=== PATIENT | female | born 1930 | race Caucasian/White ===

== ENCOUNTER 2017-02-03 13:00 | Outpatient (CLI) | payer MEDICARE, OTHER ==
--- NOTE | 2017-02-03 16:41 | XRAY Report ---
TWO VIEW CHEST: 02/03/2017 CLINICAL INDICATION: Cough, fatigue. FINDINGS: Frontal and lateral views of the chest are compared to previous films of 02/29/2012. The cardiac silhouette is within normal limits. 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 No new consolidation, effusion, or pneumothorax is present. IMPRESSION: NO EVIDENCE OF ACUTE CARDIOPULMONARY DISEASE. NO SIGNIFICANT INTERVAL CHANGE. JOB #: [id number] EXT JOB #:[id number]
== END 2017-02-03 13:01 | disposition home or self-care (01) ==
LOC: DI 13:00
PROVIDERS: ATTEND Physician Assistant
DX: R05 Cough (principal)
CPT/HCPCS: 71020

== ENCOUNTER 2017-07-22 20:46 | Outpatient (CLI) | payer MEDICARE, OTHER ==
--- NOTE | 2017-07-23 11:13 | Ultrasound Report ---
COMPLETE ABDOMINAL ULTRASOUND: 07/22/2017 CLINICAL INDICATION: Right lower quadrant pain, unspecified abdominal pain. TECHNIQUE: Real-time scanning was performed with printing sales representative static images obtained. FINDINGS: The liver measures 13.5 cm. Hepatic echogenicity is unremarkable. No focal parenchymal lesion or intrahepatic biliary dilatation is present. The common bile duct measures 5 mm. The gallbladder is normal, as is the pancreas. The kidneys are normal, with the right measuring 9.1 cm and the left measuring 9.4 cm. The spleen measures 8.2 cm, and demonstrates normal echotexture. The abdominal aorta is normal in caliber. The inferior vena cava is unremarkable. No free fluid is present. IMPRESSION: NORMAL ABDOMINAL ULTRASOUND. TD: 07/23/2017 11:12
--- NOTE | 2017-07-23 11:15 | Ultrasound Report ---
PELVIC ULTRASOUND: 07/22/2017 CLINICAL INDICATION: Right lower quadrant pain, possible mass on physical exam. TECHNIQUE: Transabdominal pelvic ultrasound performed for global evaluation. Transvaginal pelvic ultrasound performed for detailed evaluation. Real-time scanning performed and static images obtained. TECHNIQUE: The uterus is surgically absent. The right ovary is suboptimally visualized, but appears to measure 2.2 x 1.1 x 1.0 cm when visualized. Multiple peristalsing bowel loops are present in the pelvis. The left ovary was not confidently identified on transabdominal or transvaginal imaging. No free fluid is present. Scanning of the region of maximal tenderness identified by the patient in the right lower quadrant demonstrates no discrete abnormality. IMPRESSION: POSTOPERATIVE CHANGES OF HYSTERECTOMY. NO DEFINITE ADNEXAL MASS. NO EVIDENT SONOGRAPHIC ABNORMALITY AT THE PATIENT'S SITE OF MAXIMAL TENDERNESS. TD: 07/23/2017 11:14
== END 2017-07-22 20:47 | disposition home or self-care (01) ==
LOC: DI 20:46
PROVIDERS: ATTEND Family Medicine
DX: R10.31 Right lower quadrant pain (principal); Z90.710 Acquired absence of both cervix and uterus
CPT/HCPCS: 76700; 76830; 76856

== ENCOUNTER 2017-08-17 11:18 | Outpatient (CLI) | payer MEDICARE, OTHER ==
[2017-08-17] MEDS ORDERED: IOPAMIDOL-300 100 ML VIAL ONE (11:39)
[2017-08-17] MEDS ORDERED: IOPAMIDOL-300 50 ML VIAL ONE (11:39)
[2017-08-17] MEDS ORDERED: IOPAMIDOL-300 50 ML VIAL PO ONE (13:37)
[2017-08-17] MEDS ORDERED: IOPAMIDOL-300 100 ML VIAL IVP ONE (13:37)
--- NOTE | 2017-08-17 15:03 | CT Report ---
CT ABDOMEN AND PELVIS WITH CONTRAST: 08/17/2017 CLINICAL INDICATION: Pain, constipation. COMPARISON: 10/08/2010. TECHNIQUE: Axial CT images of the abdomen and pelvis were obtained with 100 mL Isovue 300 intravenously as well as oral contrast. FINDINGS: Limited evaluation of the lung bases demonstrates atelectasis. ABDOMEN: The liver, spleen, pancreas and adrenal glands appear unremarkable. The gallbladder is not dilated. The kidneys demonstrate cortical cysts. No bowel dilatation, free gas, or free fluid is present. No abdominal adenopathy is seen. PELVIS: The pelvic organs appear unremarkable. No pelvic adenopathy or free fluid is present. The patient is status post hysterectomy. Osseous structures demonstrate degenerative changes. IMPRESSION: NO EVIDENT ETIOLOGY FOR PATIENT'S PAIN AND CONSTIPATION. CT DOSE REDUCTION STATEMENT In accordance with CT protocol optimization, one or more of the following dose reduction techniques were utilized for this exam: automated exposure control, adjustment of mA and/or KV based on patient size, or use of iterative reconstructive technique. TD: 08/17/2017 15:02
== END 2017-08-17 11:19 | disposition home or self-care (01) ==
LOC: DI 11:18
PROVIDERS: ATTEND Physician Assistant
DX: R10.9 Unspecified abdominal pain (principal); K59.00 Constipation, unspecified
CPT/HCPCS: 74177; Q9967

== ENCOUNTER 2017-09-07 19:09 | Emergency (ER) | payer MEDICARE, OTHER ==
--- NOTE | 2017-09-07 21:11 | ED Physician Documentation ---
PD HPI HEADACHE - Stated complaint Stated Complaint: THOMPSON - Chief complaint Chief Complaint: Neuro - History obtained from History obtained from: Patient - History of Present Illness Timing - onset: How many days ago (2 days of intermittent headache left side, feeling ear pain and has feeling of "air" in head. Worse when lying down at night. No history of migraines. No head injury. H as not felt sick per se.) Timing - onset during: Rest Timing - duration: Hours Timing - details: Now resolved, Intermittant Worst headache ever?: Worst headache ever? Location: Front, Left Quality: Throbbing, Aching. No: Thunderclap Associated symptoms: No: Fever, Stiff neck, Nausea, Vomiting, Weakness, Numbness , Syncope, Eye pain Worsened by: No: Light, Noise Contributing factors: No: Anticoagulated, Hypertension, Recent illness, Trauma Similar symptoms before: Has not had sx before Recently seen: Not recently seen Review of Systems Constitutional: denies: Fever, Chills Eyes: denies: Loss of vision, Decreased vision, Photophobia Ears: reports: Loss of hearing (left side seems diminished), Ear pain. 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 HEENT: Cataracts, Tonsil/Adenoidectomy - Present Medications Home Medications: Ambulatory Orders Medication Instructions Recorded Confirmed Levothyroxine [Synthroid] 75 mcg PO QDAC 10/25/12 09/07/17 Lovastatin 40 mg PO DAILY 10/25/12 09/07/17 Metoprolol Succinate 25 mg PO BID 10/25/12 09/07/17 Cetirizine [ZyrTEC] 10 mg PO DAILY #20 tablet 09/07/17 Dexamethasone [Decadron] 4 mg PO DAILY #5 tablet 09/07/17 Lisinopril 5 mg PO DAILY 09/07/17 09/07/17 - Allergies Allergies/Adverse Reactions: Allergies Allergy/AdvReac Type Severity Reaction Status Date / Time sulfamethoxazole Allergy unknown Verified 09/07/17 19:22 [From ] trimethoprim [From ] Allergy unknown Verified 09/07/17 19:22 - Living Situation Living Situation: reports: Alone Living Arrangement: reports: At home - Social History Does the pt smoke?: No Smoking Status: Never smoker Does the pt drink ETOH?: Yes Does the pt have substance abuse?: No - Immunizations Immunizations are current?: Yes - POLST Patient has POLST: No PD ED PE NORMAL - Vitals Vital signs reviewed: Yes - General General: Alert and oriented X 3, No acute distress, Well developed/nourished - HEENT HEENT: PERRL, EOMI, Ears normal, Moist mucous membranes, Pharynx benign - Neck Neck: Supple, no meningeal sign, No adenopathy - Cardiac Cardiac: RRR, No murmur - Respiratory Respiratory: Clear bilaterally - Abdomen Abdomen: Soft, Non tender - Derm Derm: Normal color, Warm and dry - Extremities Extremities: No tenderness to palpate, Normal ROM s pain - Neuro Neuro: Alert and oriented X 3, medical apparatus model maker 2-12 intact, No motor deficit, No sensory deficit, Normal speech Eye Opening: Spontaneous Motor: Obeys Commands Verbal: Oriented GCS Score: 15 Results - Vitals Vitals: Vital Signs - 24 hr 09/07/17 23:24 Temperature 36.4 C L Heart Rate 65 Respiratory 17 Rate Blood Pressure 152/59 H O2 Saturation 99 Oxygen O2 Source Room air - Labs Labs: Laboratory Tests 09/07/17 09/07/17 09/07/17 22:37 22:37 22:37 WBC 6.5 RBC 4.39 Hgb 12.5 Hct 37.7 MCV 85.9 MCH 28.5 MCHC 33.2 RDW 14.2 Plt Count 187 MPV 8.0 Neut # 3.2 Lymph # 2.5 [place] # 0.6 Eos # 0.2 Baso # 0.0 Absolute Nucleated RBC 0.00 Nucleated RBC % 0.0 ESR 29 Sodium 136 Potassium 4.0 Chloride 100 L Carbon Dioxide 29 Anion Gap 7.0 BUN 21 H Creatinine 0.7 Estimated GFR (MDRD) 79 L Glucose 106 H Calcium 9.4 Total Bilirubin 0.4 AST 23 ALT 15 Alkaline Phosphatase 53 Total Protein 7.8 Albumin 4.3 Globulin 3.5 Albumin/Globulin Ratio 1.2 Lipase 44 - Rads (name of study) head CT Radiology: Prelim report reviewed (no acute process seen), EMP read contemporaneously PD MEDICAL DECISION MAKING - ED course Complexity details: reviewed results, considered differential (feeling of pressure and "air" in frontal area and left side of head/ear. Eardrum appears normal. No rash nor sores. ), d/w patient Departure - Departure Disposition: 01 Home, Self Care Clinical Impression: Sinus pressure Headache Qualifiers: Headache type: unspecified Headache chronicity pattern: acute headache Intractability: not intractable Qualified Code(s): R51 - Headache Condition: Stable Record reviewed to determine appropriate education?: Yes Instructions: ED Cephalgia Unspecified Follow-Up: Katia Murguia PA [Primary Care Provider] - Prescriptions: Cetirizine [ZyrTEC] 10 mg PO DAILY #20 tablet Dexamethasone [Decadron] 4 mg PO DAILY #5 tablet Comments: Your head CT and basic blood tests are normal here. The headache you had and the subsequent air and pressure feeling may have related to sinus or middle ear pressure. We can try some anti-inflammatory and antihistamine medications for sinus congestion and see how you feel. The morning and throat irritation and phlegm that you have had would relate to this as well. Use Tylenol or ibuprofen or Aleve if needed for pains. Follow-up with your primary care. Discharge Date/Time: 09/07/17 23:40
--- NOTE | 2017-09-07 22:26 | XRAY Preliminary Report ---
Exam: XR CHEST 2 VIEW X-RAY IMPRESSION: No acute findings are seen. See above. [facility] SITE ID: [id number]
--- NOTE | 2017-09-07 22:26 | XRAY Report ---
EXAM: CHEST RADIOGRAPHY EXAM DATE: 09/07/2017 10:18 PM. CLINICAL HISTORY: Cough and some dyspnea. COMPARISON: Chest 02/03/2017. TECHNIQUE: 2 views. FINDINGS: Lungs/Pleura: No consolidation, airspace disease, pleural effusion or pneumothorax. Tiny density righ t apex, could be a calcified pulmonary nodule measuring 4 mm, appears unchanged Mediastinum: Borderline cardiomegaly, unchanged. IMPRESSION: No acute findings are seen. See above. [facility] Referring Provider Line: [phone] SITE ID: [id number]
--- NOTE | 2017-09-07 22:29 | CT Preliminary Report ---
Exam: CT HEAD W/O IMPRESSION: Generalized age-related cortical atrophic changes without evidence of acute intracranial abnormality. [facility] SITE ID: [id number]
--- NOTE | 2017-09-07 22:33 | CT Report ---
EXAM: CT HEAD EXAM DATE: 09/07/2017 10:12 PM. CLINICAL HISTORY: Headache 2 days ago, feeling lightheaded still. COMPARISON: Brain CT from 10/25/2012 and brain MRI from 10/26/2012. TECHNIQUE: Multiaxial CT images were obtained from the foramen magnum to the vertex. Reformats: Coron al. IV contrast: None. In accordance with CT protocol optimization, one or more of the following dose reduction techniques w ere utilized for this exam: automated exposure control, adjustment of mA and/or KV based on patient s ize, or use of iterative reconstructive technique. FINDINGS: Parenchyma: No intraparenchymal hemorrhage. No evidence of mass, midline shift, or CT findings of acu te infarction. Dowd-white differentiation is distinct. Mild diffuse chronic microangiopathic white ma tter changes are evident. Extraaxial Spaces: Normal for age. No subdural or epidural collections identified. Ventricles: The ventricles and cortical sulci are mildly enlarged, consistent with age-related tissue loss. Sinuses and orbits: Postsurgical changes from cataract extractions are noted in the globes. The paran ivonne and mastoid sinuses are not opacified. Bones: No evidence of fracture or calvarial defect. Other: Mild intracranial atherosclerosis is noted. IMPRESSION: Generalized age-related cortical atrophic changes without evidence of acute intracranial abnormality. [facility] Referring Provider Line: [phone] SITE ID: [id number]
[2017-09-07 22:47] LABS: BASOPHILS % (AUTO) 0.6 %; EOSINOPHILS # (AUTO) 0.2 10^3/uL (0.0-0.7); EOSINOPHILS % (AUTO) 2.8 %; HGB - HEMOGLOBIN 12.5 g/dL (12.0-16.0); LYMPHOCYTES # (AUTO) 2.5 10^3/uL (1.5-3.5); LYMPHOCYTES % (AUTO) 38.2 %; MEAN CORPUSCULAR HEMOGLOBIN 28.5 pg (27.0-31.0); MEAN CORPUSCULAR HGB CONC 33.2 g/dL (32.0-36.0); MEAN CORPUSCULAR VOLUME 85.9 fL (81.0-99.0); MONOCYTES # (AUTO) 0.6 10^3/uL (0.0-1.0); MONOCYTES % (AUTO) 9.6 %; NEUTROPHILS # (AUTO) 3.2 10^3/uL (1.5-6.6); NEUTROPHILS % (AUTO) 48.8 %; PLT - PLATELET COUNT 187 10^3/uL (130-450); RED BLOOD COUNT 4.39 10^6/uL (4.20-5.40); RED CELL DISTRIBUTION WIDTH 14.2 % (12.0-15.0); WHITE BLOOD COUNT 6.5 x10^3/uL (4.8-10.8)
[2017-09-07 22:59] LABS: ALBUMIN 4.3 g/dL (3.2-5.5); ALBUMIN/GLOBULIN RATIO 1.2 (1.0-2.2); BILIRUBIN,TOTAL 0.4 mg/dL (0.2-1.0); CALCIUM 9.4 mg/dL (8.5-10.3); CREATININE 0.7 mg/dL (0.4-1.0); TOTAL PROTEIN 7.8 g/dL (6.7-8.2)
[2017-09-07] MEDS ORDERED: DEXAMETHASONE 10 MG/ML VIAL PO STA (23:18)
[2017-09-07] MEDS ORDERED: CETIRIZINE 10 MG TABLET PO STA (23:18)
[2017-09-07 23:25] VITALS: BP 152/59
== END 2017-09-07 23:40 | disposition home or self-care (01) ==
LOC: ED 19:09
DX: J34.89 Other specified disorders of nose and nasal sinuses (principal); R51 Headache; I10 Essential (primary) hypertension; E03.9 Hypothyroidism, unspecified; Z86.73 Personal history of transient ischemic attack (TIA), and cerebral infarction without residual deficits
CPT/HCPCS: 36415; 70450; 71046; 80053; 83690; 85025; 85651; 99283; A9270

== ENCOUNTER 2017-10-14 09:54 | Outpatient (CLI) | payer MEDICARE, OTHER | END 2017-10-14 09:55 | disposition home or self-care (01) | LOC: RT 09:54 | PROVIDERS: ATTEND Physician Assistant | DX: I10 Essential (primary) hypertension (principal); E78.5 Hyperlipidemia, unspecified; R06.02 Shortness of breath; R06.00 Dyspnea, unspecified | CPT/HCPCS: 93005; 93306 ==

== ENCOUNTER 2018-06-26 11:57 | Outpatient (CLI) | payer MEDICARE, OTHER ==
--- NOTE | 2018-06-26 14:43 | Ultrasound Report ---
Reason: LUMP L SIDE OF NECK Procedure Date: 06/26/2018 Accession Number: [id number] / [id number] Procedure: US - Head or Neck Soft Tissue CPT Code: FULL RESULT: EXAM: NECK ULTRASOUND EXAM DATE: 06/26/2018 12:30 PM. CLINICAL HISTORY: LUMP L SIDE OF NECK. COMPARISON: None. TECHNIQUE: Real-time sonographic imaging was performed by the dispensing and measuring optician utilizing color-flow. Multiple uniforms sales representative static images were saved for review. FINDINGS: The submandibular region was evaluated. No mass/lymph node is seen associated with palpable abnormality. There is symmetric appearance of soft tissue evaluated compared to contralateral side. IMPRESSION: No significant abnormality without evidence of mass or adenopathy. [facility]
== END 2018-06-26 11:58 | disposition home or self-care (01) ==
LOC: DI 11:57
PROVIDERS: ATTEND Internal Medicine
DX: R22.1 Localized swelling, mass and lump, neck (principal)
CPT/HCPCS: 76536

== ENCOUNTER 2019-07-18 12:57 | Outpatient (CLI) | payer MEDICARE, OTHER ==
--- NOTE | 2019-07-18 15:02 | XRAY Report ---
Reason: PAIN IN LT UPPER ARM Procedure Date: 07/18/2019 Accession Number: [id number] / [id number] Procedure: XRS - Humerus LT CPT Code: Final Report FULL RESULT: EXAM: LEFT HUMERUS RADIOGRAPHY EXAM DATE: 07/18/2019 01:10 PM. CLINICAL HISTORY: Left arm pain for 2 months. The patient does not recall an episode of trauma. COMPARISON: None. TECHNIQUE: 2 views. FINDINGS: Bones: Normal bone mineralization and no fracture per her note focal bone lesion. Joints: Marginal osteophytes associated with the glenohumeral joint. Joint space narrowing, marginal osteophyte formation and subchondral cyst formation involving the acromioclavicular joint, compatible with osteoarthritis. Left elbow joint is intact. Soft Tissues: Normal. No soft tissue swelling. IMPRESSION: 1. Degenerative changes involving the glenohumeral and acromioclavicular joints, greatest involving the AC joint. 2. The remainder of the left humerus radiography is unremarkable. [facility]
== END 2019-07-18 12:58 | disposition home or self-care (01) ==
LOC: DI.S 12:57
PROVIDERS: ATTEND Internal Medicine
DX: M19.012 Primary osteoarthritis, left shoulder (principal)

== ENCOUNTER 2020-07-16 16:09 | Outpatient (CLI) | payer MEDICARE, OTHER | END 2020-07-16 16:10 | disposition home or self-care (01) | LOC: COV 16:09 | PROVIDERS: ATTEND Family Medicine | DX: R50.9 Fever, unspecified (principal); R05 Cough; M79.10 Myalgia, unspecified site; R53.83 Other fatigue; R09.81 Nasal congestion; Z20.822 Contact with and (suspected) exposure to COVID-19 ==

== ENCOUNTER 2020-07-25 12:06 | Outpatient (CLI) | payer MEDICARE, OTHER ==
[2020-07-25 14:51] LABS: BILIRUBIN,URINE NEGATIVE (NEGATIVE); GLUCOSE, URINE (UA) NEGATIVE (NEGATIVE); KETONES,URINE (UA) NEGATIVE (NEGATIVE); LEUKOCYTE ESTERASE, URINE MODERATE (NEGATIVE); NITRITE,URINE NEGATIVE (NEGATIVE); OCCULT BLOOD,URINE MODERATE (NEGATIVE); PROTEIN,URINE NEGATIVE (NEGATIVE); UROBILINOGEN,URINE 0.2 (NORMAL) E.U./dL (NORMAL)
[2020-07-25 15:02] LABS: CLARITY,URINE SL. CLOUDY (CLEAR)
[2020-07-25 15:06] LABS: BACTERIA,URINE Moderate /HPF (None Seen); MUCUS,URINE Few Strands; SQUAMOUS EPITHELIAL CELL,UR FEW Squamous (<= Few)
== END 2020-07-25 12:07 | disposition home or self-care (01) ==
LOC: LAB.S 12:06
PROVIDERS: ATTEND Internal Medicine
DX: R31.9 Hematuria, unspecified (principal)
CPT/HCPCS: 81001; 81003; 87086; 87181

== ENCOUNTER 2020-07-26 11:44 | Outpatient (CLI) | payer MEDICARE, OTHER ==
--- NOTE | 2020-07-26 12:04 | XRAY Report ---
PROCEDURE: Chest 2 View X-Ray INDICATIONS: COUGH, FEVER TECHNIQUE: 2 view(s) of the chest. COMPARISON: Chest x-ray 2 views, 09/07/2017. FINDINGS: Surgical changes and devices: None. Lungs and pleura: Right upper lobe infiltrates suspicious for developing pneumonia. Hyperinflation c onsistent with COPD. No pleural effusions or pneumothorax. Mediastinum: Mediastinal contours are normal. Heart size is normal. Bones and chest wall: No suspicious bony abnormalities. Soft tissues appear unremarkable. IMPRESSION: Developing right upper lobe pneumonia. Reviewed by: Saleem Casey MD on 07/26/2020 12:03 PM PST Approved by: Saleem Casey MD on 07/26/2020 12:03 PM PST Station ID: [id number]
== END 2020-07-26 11:45 | disposition home or self-care (01) ==
LOC: DI.S 11:44
PROVIDERS: ATTEND Internal Medicine
DX: J18.9 Pneumonia, unspecified organism (principal); R05 Cough; R50.9 Fever, unspecified

== ENCOUNTER 2020-07-29 17:25 | Outpatient (CLI) | payer MEDICARE, OTHER | END 2020-07-29 17:26 | disposition critical access hospital (66) | LOC: EMS 17:25 | PROVIDERS: ATTEND Emergency Medicine | DX: R06.02 Shortness of breath (principal); R53.1 Weakness; R05 Cough | CPT/HCPCS: A0425; A0429 ==

== ENCOUNTER 2020-07-29 18:02 | Emergency (ER) | payer MEDICARE, OTHER ==
[2020-07-29] MEDS ORDERED: ALBUTEROL NEB 2.5 MG/3 ML INH STA ×2 (18:08→21:02)
--- NOTE | 2020-07-29 18:11 | ED Physician Documentation ---
PD HPI DYSPNEA - Stated complaint Stated Complaint: SOA - History obtained from History obtained from: Patient, EMS - Additional information Additional information: This is a very healthy 89-year-old woman who got sick in the middle of last week, she was seen by her physician and on Wednesday, 3 days ago had an x-ray showing a developing right upper lobe pneumonia. She was started on levofloxacin. She was not really getting any better and today she feels like she got much more short of breath. She is having chills but no measured fever today. She denies chest pain. Cough is minimally productive of yellow sputum and the production is getting better since starting antibiotics. Review of Systems Ten Systems: 10 systems reviewed and negative Constitutional: reports: Chills, Fatigue. 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 HEENT: Cataracts, Tonsil/Adenoidectomy - Present Medications Home Medications: Ambulatory Orders Medication Instructions Recorded Confirmed Albuterol Sulf [Ventolin Hfa 1 - 2 puffs INH Q4HR PRN #1 inhaler 07/29/20 Inhaler] Ciprofloxacin HCl 1 tab PO TID 07/29/20 07/29/20 Levofloxacin [Levaquin] 1 tab PO DAILY 07/29/20 07/29/20 Losartan Potassium [Cozaar] 80 mg PO DAILY 07/29/20 07/29/20 Lovastatin [Altoprev] 1 tab PO DAILY 07/29/20 07/29/20 Thyroid [Hammond Thyroid] 1 tab PO DAILY 07/29/20 07/29/20 amLODIPine [Norvasc] 2.5 mg PO DAILY 07/29/20 07/29/20 dexAMETHasone [Decadron] 4 mg PO BIDWM #10 07/29/20 - Allergies Allergies/Adverse Reactions: Allergies Allergy/AdvReac Type Severity Reaction Status Date / Time sulfamethoxazole Allergy unknown Verified 07/29/20 18:23 [From ] trimethoprim [From ] Allergy unknown Verified 07/29/20 18:23 - Social History Does the pt smoke?: No Smoking Status: Never smoker Does the pt drink ETOH?: Yes Does the pt have substance abuse?: No - Immunizations Immunizations are current?: Yes - POLST Patient has POLST: No PD ED PE NORMAL - Vitals Vital signs reviewed: Yes - General General: Alert and oriented X 3, Other (Frequent coughing) - HEENT HEENT: PERRL, EOMI - Neck Neck: Supple, no meningeal sign, No bony TTP - Cardiac Cardiac: RRR, No murmur - Respiratory Respiratory: Other (Mild tachypnea, frequent coughing, no focal breath sounds) - Abdomen Abdomen: Non tender - Female Female : Brass Plater present (trisha rn), Other (No vaginal blood but she had a tissue mass protruding from the urethra which was abraded. Presume small cystocele.) - Back Back: No CVA TTP, No spinal TTP - Derm Derm: Normal color, Warm and dry - Extremities Extremities: No edema, No calf tenderness / cord - Neuro Neuro: Alert and oriented X 3, Normal speech Results - Vitals Vitals: Vital Signs - 24 hr 07/29/20 07/29/20 07/29/20 18:08 18:10 18:25 Temperature 36.9 C Heart Rate 92 85 Respiratory 20 20 16 Rate Blood Pressure 168/69 H O2 Saturation 95 94 07/29/20 07/29/20 07/29/20 19:10 19:30 20:16 Temperature 36.8 C 36.8 C Heart Rate 92 88 85 Respiratory 22 22 19 Rate Blood Pressure 134/65 H 141/61 H 126/101 H O2 Saturation 95 94 94 07/29/20 20:30 Temperature 37.1 C Heart Rate 85 Respiratory 18 Rate Blood Pressure 145/64 H O2 Saturation 99 Oxygen O2 Source Room air Oxygen Flow Rate 2 - EKG (time done) 1828 Rate: Rate (enter#) (87) Rhythm: NSR [place]: Normal Intervals: Normal MI QRS: Normal Ischemia: Normal ST segments Computer interpretation: Agree with computer - Labs Labs: Laboratory Tests 07/29/20 07/29/20 07/29/20 18:13 18:27 18:27 WBC 13.8 H RBC 3.78 L Hgb 10.8 L Hct 32.3 L MCV 85.4 MCH 28.6 MCHC 33.4 RDW 13.1 Plt Count 331 MPV 9.3 Neut # (Auto) 11.3 H Lymph # (Auto) 1.1 L [place] # (Auto) 1.2 H Eos # (Auto) 0.1 Baso # (Auto) 0.0 Absolute Nucleated RBC 0.00 Nucleated RBC % 0.0 Sodium 124 L Potassium 4.2 Chloride 87 L Carbon Dioxide 25 Anion Gap 12.0 BUN 13 Creatinine 0.7 Estimated GFR (MDRD) 79 L Glucose 138 H Lactic Acid Calcium 9.4 Total Bilirubin 0.4 AST 27 ALT 23 Alkaline Phosphatase 77 Troponin I High Sens B-Natriuretic Peptide Total Protein 8.8 H Albumin 3.7 Globulin 5.1 H Albumin/Globulin Ratio 0.7 L Nasal Adenovirus (PCR) NOT DETECTED Nasal B. parapertussis DNA (PCR) NOT DETECTED Nasal Coronavir 229E PCR NOT DETECTED Nasal Coronavir HKU1 PCR NOT DETECTED Nasal Coronavir NL63 PCR NOT DETECTED Nasal Coronavir OC43 PCR NOT DETECTED Nasal Enterovir/Rhinovir PCR NOT DETECTED Nasal Influenza B PCR NOT DETECTED Nasal Influenza A PCR NOT DETECTED Nasal Parainfluen 1 PCR NOT DETECTED Nasal Parainfluen 2 PCR NOT DETECTED Nasal Parainfluen 3 PCR NOT DETECTED Nasal Parainfluen 4 PCR NOT DETECTED Nasal RSV (PCR) NOT DETECTED Nasal B.pertussis DNA PCR NOT DETECTED Nasal C.pneumoniae (PCR) NOT DETECTED Jose Antonio Human Metapneumo PCR NOT DETECTED Nasal M.pneumoniae (PCR) NOT DETECTED Nasal SARS-CoV-2 (PCR) NOT DETECTED 07/29/20 07/29/20 07/29/20 18:27 18:27 18:50 WBC RBC Hgb Hct MCV MCH MCHC RDW Plt Count MPV Neut # (Auto) Lymph # (Auto) [place] # (Auto) Eos # (Auto) Baso # (Auto) Absolute Nucleated RBC Nucleated RBC % Sodium Potassium Chloride Carbon Dioxide Anion Gap BUN Creatinine Estimated GFR (MDRD) Glucose Lactic Acid 1.5 Calcium Total Bilirubin AST ALT Alkaline Phosphatase Troponin I High Sens 11.9 B-Natriuretic Peptide 47 Total Protein Albumin Globulin Albumin/Globulin Ratio Nasal Adenovirus (PCR) Nasal B. parapertussis DNA (PCR) Nasal Coronavir 229E PCR Nasal Coronavir HKU1 PCR Nasal Coronavir NL63 PCR Nasal Coronavir OC43 PCR Nasal Enterovir/Rhinovir PCR Nasal Influenza B PCR Nasal Influenza A PCR Nasal Parainfluen 1 PCR Nasal Parainfluen 2 PCR Nasal Parainfluen 3 PCR Nasal Parainfluen 4 PCR Nasal RSV (PCR) Nasal B.pertussis DNA PCR Nasal C.pneumoniae (PCR) Jose Antonio Human Metapneumo PCR Nasal M.pneumoniae (PCR) Nasal SARS-CoV-2 (PCR) - Rads (name of study) 1v chest Radiology: EMP read contemporaneously (Mild chronic interstitial change without obvious acute disease) PD MEDICAL DECISION MAKING - ED course ED course: 89-year-old woman with recent diagnosis of UTI started on Cipro and then subsequently started on Levaquin based on x-ray on Wednesday. I reviewed the x-ray from the other day I do not really see pneumonia and today we do not see a pneumonia. There is no evidence of active heart disease. She is hyponatremic which looks like it is a new phenomenon for her, but I do not think that would cause her current symptoms. She complains of pelvic bleeding, she is unsure whether it is in the urine or from the vagina. Hemoglobin is down just a bit from prior numbers, we do not have any recent values on her. Subsequently CT imaging demonstrated the pneumonia which was silence on chest x- ray, given the ongoing dysuria CT of the belly was also done negative for acute findings except for distended bladder. After urination her postvoid residual was 320 mL so I do not think she needs a Guerrero. Departure - Departure Disposition: 01 Home, Self Care Clinical Impression: Pulmonary nodule, Hyponatremia, Pelvic pain Pneumonia Qualifiers: Pneumonia type: due to unspecified organism Laterality: right Lung location: upper lobe of lung Qualified Code(s): J18.9 - Pneumonia, unspecified organism UTI (urinary tract infection) Qualifiers: Urinary tract infection type: site unspecified Hematuria presence: with hematuria Qualified Code(s): N39.0 - Urinary tract infection, site not specified; R31.9 - Hematuria, unspecified Cystocele Qualifiers: Cystocele location: midline Qualified Code(s): N81.11 - Cystocele, midline Condition: Good Record reviewed to determine appropriate education?: Yes Instructions: Pneumonia Dc Follow-Up: Troy Walton MD [Provider Admit Priv/Credential] - Prescriptions: Albuterol Sulf [Ventolin Hfa Inhaler] 1 - 2 puffs INH Q4HR PRN #1 inhaler PRN Reason: Shortness Of Air/Wheezing dexAMETHasone [Decadron] 4 mg PO BIDWM #10 Comments: You were seen tonight and we found several issues, I think all of them are manageable. As noted you do have low sodium. My suspicion is this is from your poor appetite from the illness and drinking extra water. Try to drink Gatorade or Pedialyte instead of water, this should help, also try to improve your appetite. We will help with that with the steroids which may help with your breathing too. I am also prescribing an inhaler, which should help with your breathing. Follow-up with your primary care physician. They want to recheck your sodium and make sure that is getting better, also you have a small pulmonary nodule and the radiologist recommended a repeat chest CT in 6 to 12 months. You should also follow-up with a landcare officer, the numbers on this form regarding the cystocele.
--- NOTE | 2020-07-29 18:30 | XRAY Report ---
PROCEDURE: Chest 1 View X-Ray INDICATIONS: cough TECHNIQUE: One view of the chest was acquired. COMPARISON: 07/26/2020, 09/07/2017 FINDINGS: Surgical changes and devices: None. Lungs and pleura: No pleural effusions or pneumothorax. Mild chronic interstitial change. Mediastinum: Mediastinal contours appear normal. Heart size is normal. Bones and chest wall: No suspicious bony lesions. Overlying soft tissues appear unremarkable. IMPRESSION: Mild chronic interstitial change. No evidence acute pulmonary process. Reviewed by: Thai Grewal MD on 07/29/2020 6:29 PM PST Approved by: Thai Grewal MD on 07/29/2020 6:29 PM PST Station ID: [id number]
[2020-07-29 18:33] LABS: BASOPHILS % (AUTO) 0.3 %; EOSINOPHILS # (AUTO) 0.1 10^3/uL (0.0-0.7); EOSINOPHILS % (AUTO) 0.6 %; HCT - HEMATOCRIT 32.3 % (37.0-47.0); HGB - HEMOGLOBIN 10.8 g/dL (12.0-16.0); LYMPHOCYTES # (AUTO) 1.1 10^3/uL (1.5-3.5); LYMPHOCYTES % (AUTO) 7.9 %; MEAN CORPUSCULAR HEMOGLOBIN 28.6 pg (27.0-31.0); MEAN CORPUSCULAR HGB CONC 33.4 g/dL (32.0-36.0); MEAN CORPUSCULAR VOLUME 85.4 fL (81.0-99.0); MEAN PLATELET VOLUME 9.3 fL (7.9-10.8); MONOCYTES # (AUTO) 1.2 10^3/uL (0.0-1.0); MONOCYTES % (AUTO) 8.4 %; NEUTROPHILS # (AUTO) 11.3 10^3/uL (1.5-6.6); PLT - PLATELET COUNT 331 10^3/uL (130-450); RED BLOOD COUNT 3.78 10^6/uL (4.20-5.40); RED CELL DISTRIBUTION WIDTH 13.1 % (12.0-15.0); WHITE BLOOD COUNT 13.8 x10^3/uL (4.8-10.8)
[2020-07-29 18:46] LABS: ALBUMIN 3.7 g/dL (3.2-5.5); ALBUMIN/GLOBULIN RATIO 0.7 (1.0-2.2); BILIRUBIN,TOTAL 0.4 mg/dL (0.2-1.0); CALCIUM 9.4 mg/dL (8.5-10.3); CREATININE 0.7 mg/dL (0.4-1.0); POTASSIUM 4.2 mmol/L (3.5-5.0); TOTAL PROTEIN 8.8 g/dL (6.7-8.2)
[2020-07-29 19:22] LABS: B. PARAPERTUSSIS- RESP PCR PAN NOT DETECTED; B. PERTUSSIS- RESP PCR PANEL NOT DETECTED; C. PNEUMONIAE- RESP PCR PANEL NOT DETECTED; CORONAVIRUS 229E-RESP PCR NOT DETECTED; CORONAVIRUS HKU1-RESP PCR NOT DETECTED; CORONAVIRUS NL63-RESP PCR NOT DETECTED; CORONAVIRUS OC43-RESP PCR NOT DETECTED; HUMAN METAPNEUMOVIRUS NOT DETECTED; INFLUENZA A- RESP PCR PANEL NOT DETECTED; INFLUENZA B - RESP PCR PANEL NOT DETECTED; M. PNEUMONIAE- RESP PCR PANEL NOT DETECTED; PARAINFLUENZA VIRUS 1 NOT DETECTED; PARAINFLUENZA VIRUS 2 NOT DETECTED; PARAINFLUENZA VIRUS 3 NOT DETECTED; PARAINFLUENZA VIRUS 4 NOT DETECTED; RHINOVIRUS/ENTEROVIRUS NOT DETECTED; RSV- RESP PCR PANEL NOT DETECTED; SARS-CoV-2 -RESP PCR PANEL NOT DETECTED
[2020-07-29] MEDS ORDERED: IOVERSOL 320 100 ML VIAL IVP ONE (19:47)
--- NOTE | 2020-07-29 20:34 | CT Report ---
PROCEDURE: Abdomen/Pelvis W INDICATIONS: pelvic pain CONTRAST: IV CONTRAST: Optiray 320 ml: 100 PO CONTRAST: *NO PO CONTRAST TECHNIQUE: After the administration of intravenous contrast, 5 mm thick sections acquired from the diaphragms to the symphysis. 5 mm thick coronal and sagittal reformats were acquired. For radiation dose reducti on, the following was used: automated exposure control, adjustment of mA and/or kV according to randy ent size. COMPARISON: 08/17/2017 FINDINGS: Image quality: Excellent. ABDOMEN: Lung bases: Minimal bibasilar atelectasis. Heart size is normal. Solid organs: Liver and spleen are normal in size and enhancement. Gallbladder is unremarkable. Bi liary system is non dilated. Pancreas enhances normally. No adrenal nodules. Kidneys demonstrate n ormal size and enhancement, without hydronephrosis. Peritoneum and bowel: Bowel loops demonstrate normal wall thickness and caliber. No free fluid or a ir. Nodes and vessels: No retroperitoneal or mesenteric adenopathy by size criteria. Aorta and inferior vena cava are normal in size. Miscellaneous: No ventral hernias. PELVIS: Genitourinary: Bladder is distended. Bladder wall thickness is normal. Miscellaneous: No inguinal hernias or adenopathy. Remote hysterectomy. Bones: No suspicious bony lesions. No vertebral body compression fractures. IMPRESSION: 1. Distended bladder. 2. No evidence of acute abdominal process. Reviewed by: Thai Grewal MD on 07/29/2020 8:33 PM PST Approved by: Thai Grewal MD on 07/29/2020 8:33 PM PST Station ID: [id number]
--- NOTE | 2020-07-29 20:38 | CT Report ---
PROCEDURE: ANGIO CHEST W/WO INDICATIONS: dyspnea, pe protocol CONTRAST: IV CONTRAST: Optiray 320 ml: 10 PO CONTRAST: *NO PO CONTRAST TECHNIQUE: After the administration of intravenous contrast, 2 mm thick sections acquired from the pulmonary api cayden to the posterior costophrenic angles. 3-dimensional maximum intensity projection (MIP) coronal a nd sagittal reformats were then acquired through the thorax. For radiation dose reduction, the follow ing was used: automated exposure control, adjustment of mA and/or kV according to patient size. COMPARISON: None FINDINGS: Image quality: Excellent. Pulmonary arteries: Pulmonary arteries are normal in size, and demonstrate no intraluminal filling d efects to suggest central pulmonary embolism. Lungs and pleura: Patchy bilateral predominantly peripheral interstitial infiltrates bilaterally, pos sibly representing viral pneumonia. 7 mm pulmonary nodule, right upper lobe, image 115/7. No pleural effusions or pneumothorax. Central and peripheral airways are patent. Mediastinum: Heart size is normal, without pericardial effusion. No mediastinal or hilar adenopathy . Mildly prominent bilateral hilar lymph nodes, likely reactive. Thoracic aorta is normal in caliber and enhancement. Esophagus is normal in caliber, without hiatal hernia. Bones and chest wall: No suspicious bony lesions. Ribs and thoracic spine appear intact throughout. The thyroid is normal. No axillary or supraclavicular adenopathy. Abdomen: Visualized upper abdominal solid organs appear normal in the early arterial phase of enhanc ement. IMPRESSION: 1. No evidence acute pulmonary emboli. 2. Patchy predominantly interstitial bilateral infiltrates raise the question of Covid-19 pneumonia. 3. 7 mm pulmonary nodule, right upper lobe. Comment: As per the Fleischner Society criteria,If the patient is at low risk for lung cancer follow up CT at 6-12 months, then at 18-24 months if not change. If the patient has risk factors for lung c ancer, follow up chest CT at 3-6 months, then at 9-12 months and 24 months if no change. Reviewed by: Thai Grewal MD on 07/29/2020 8:37 PM PST Approved by: Thai Grewal MD on 07/29/2020 8:37 PM PST Station ID: [id number]
[2020-07-29] MEDS ORDERED: DEXAMETHASONE 10 MG/ML VIAL IVP STA (21:02)
[2020-07-29 21:28] VITALS: BP 149/65
== END 2020-07-29 21:45 | disposition home or self-care (01) ==
LOC: EDUNIT# → ED 18:02
DX: J18.9 Pneumonia, unspecified organism (principal); R91.1 Solitary pulmonary nodule; E87.1 Hypo-osmolality and hyponatremia; R10.2 Pelvic and perineal pain; N39.0 Urinary tract infection, site not specified; R31.9 Hematuria, unspecified; N81.11 Cystocele, midline; Z20.822 Contact with and (suspected) exposure to COVID-19; I10 Essential (primary) hypertension
CPT/HCPCS: 36415; 71045; 71275; 74177; 80053; 83605; 83880; 84484; 85025; 87040; 87631; 93005; 94640; 96374; 99284; Q9967; 0202U

== ENCOUNTER 2020-08-05 08:00 | Outpatient (CLI) | payer MEDICARE, OTHER ==
[2020-08-05 20:13] LABS: BASOPHILS # (AUTO) 0.1 10^3/uL (0.0-0.1); BASOPHILS % (AUTO) 0.3 %; EOSINOPHILS # (AUTO) 0.2 10^3/uL (0.0-0.7); EOSINOPHILS % (AUTO) 0.9 %; HGB - HEMOGLOBIN 11.5 g/dL (12.0-16.0); LYMPHOCYTES # (AUTO) 3.7 10^3/uL (1.5-3.5); LYMPHOCYTES % (AUTO) 17.7 %; MEAN CORPUSCULAR HEMOGLOBIN 28.2 pg (27.0-31.0); MEAN CORPUSCULAR HGB CONC 31.9 g/dL (32.0-36.0); MEAN CORPUSCULAR VOLUME 88.2 fL (81.0-99.0); MEAN PLATELET VOLUME 9.6 fL (7.9-10.8); MONOCYTES # (AUTO) 1.6 10^3/uL (0.0-1.0); MONOCYTES % (AUTO) 7.7 %; NEUTROPHILS # (AUTO) 14.7 10^3/uL (1.5-6.6); NEUTROPHILS % (AUTO) 71.2 %; PLT - PLATELET COUNT 473 10^3/uL (130-450); RED BLOOD COUNT 4.08 10^6/uL (4.20-5.40); RED CELL DISTRIBUTION WIDTH 13.5 % (12.0-15.0); WHITE BLOOD COUNT 20.6 x10^3/uL (4.8-10.8)
[2020-08-05 20:20] LABS: SLIDE REVIEW? Indicated
[2020-08-05 20:43] LABS: ALBUMIN 3.5 g/dL (3.2-5.5); ALBUMIN/GLOBULIN RATIO 0.9 (1.0-2.2); BILIRUBIN,TOTAL 0.3 mg/dL (0.2-1.0); CALCIUM 9.1 mg/dL (8.5-10.3); CREATININE 0.7 mg/dL (0.4-1.0); POTASSIUM 4.1 mmol/L (3.5-5.0); TOTAL PROTEIN 7.2 g/dL (6.7-8.2)
[2020-08-05 21:56] LABS: DIFFERENTIAL COMMENT MANUAL=AUTO DIFF; PLATELET ESTIMATE, MANUAL INCREASED (>450,000) (NORMAL); PLATELET MORPHOLOGY NORMAL APPEARANCE (NORMAL); RBC MORPHOLOGY (MULTIPLE) NORMAL APPEARANCE (NORMAL); WBC MORPHOLOGY (MULTIPLE) NORMAL APPEARANCE (NORMAL)
== END 2020-08-05 23:59 | disposition home or self-care (01) ==
LOC: LAB.S 08:00
PROVIDERS: ATTEND Physician Assistant Medical
DX: R42 Dizziness and giddiness (principal); E87.1 Hypo-osmolality and hyponatremia
CPT/HCPCS: 36415; 80053; 85025

== ENCOUNTER 2020-08-07 05:38 | Emergency (ER) | payer MEDICARE, OTHER ==
[2020-08-07 06:26] LABS: BASOPHILS % (AUTO) 0.1 %; EOSINOPHILS # (AUTO) 0.3 10^3/uL (0.0-0.7); HCT - HEMATOCRIT 35.8 % (37.0-47.0); HGB - HEMOGLOBIN 11.7 g/dL (12.0-16.0); LYMPHOCYTES # (AUTO) 2.2 10^3/uL (1.5-3.5); LYMPHOCYTES % (AUTO) 15.6 %; MEAN CORPUSCULAR HEMOGLOBIN 28.3 pg (27.0-31.0); MEAN CORPUSCULAR HGB CONC 32.7 g/dL (32.0-36.0); MEAN CORPUSCULAR VOLUME 86.5 fL (81.0-99.0); MEAN PLATELET VOLUME 8.9 fL (7.9-10.8); MONOCYTES % (AUTO) 7.4 %; NEUTROPHILS # (AUTO) 10.3 10^3/uL (1.5-6.6); NEUTROPHILS % (AUTO) 73.8 %; PLT - PLATELET COUNT 402 10^3/uL (130-450); RED BLOOD COUNT 4.14 10^6/uL (4.20-5.40); RED CELL DISTRIBUTION WIDTH 13.9 % (12.0-15.0); WHITE BLOOD COUNT 13.9 x10^3/uL (4.8-10.8)
[2020-08-07 06:28] LABS: BILIRUBIN,URINE NEGATIVE (NEGATIVE); GLUCOSE, URINE (UA) NEGATIVE (NEGATIVE); KETONES,URINE (UA) NEGATIVE (NEGATIVE); LEUKOCYTE ESTERASE, URINE NEGATIVE (NEGATIVE); NITRITE,URINE NEGATIVE (NEGATIVE); OCCULT BLOOD,URINE SMALL (NEGATIVE); PROTEIN,URINE NEGATIVE (NEGATIVE); UROBILINOGEN,URINE 0.2 (NORMAL) E.U./dL (NORMAL)
[2020-08-07 06:32] LABS: CLARITY,URINE CLEAR (CLEAR); INR 1.1 (0.8-1.2); PT - PROTHROMBIN TIME 12.2 secs (9.9-12.6)
[2020-08-07 06:35] LABS: ALBUMIN 3.5 g/dL (3.2-5.5); BILIRUBIN,TOTAL 0.6 mg/dL (0.2-1.0); CALCIUM 8.9 mg/dL (8.5-10.3); CREATININE 0.7 mg/dL (0.4-1.0); POTASSIUM 4.1 mmol/L (3.5-5.0); TOTAL PROTEIN 7.1 g/dL (6.7-8.2)
[2020-08-07 06:39] LABS: PARTIAL THROMBOPLASTIN TIME 29.7 secs (24.9-33.3)
[2020-08-07 06:41] LABS: BACTERIA,URINE None Seen /HPF (None Seen); SQUAMOUS EPITHELIAL CELL,UR NONE SEEN (<= Few); WBC,URINE 0-3 /HPF (0-5)
--- NOTE | 2020-08-07 07:08 | ED Physician Documentation ---
PD HPI ALTERED MENTAL STATUS - Stated complaint Stated Complaint: CONFUSION - Chief complaint Chief Complaint: Neuro - History obtained from History obtained from: Patient - History of Present Illness Timing - onset: How many weeks ago (daughter states patient with anxiety, agitated at times, and poor sleep for couple of weeks. Dx with UTI about 2 weeks ago and then pneumonia. Was on Cipro, changed to Levaquin, along with 5 day steroids. cough and uti symptoms improved but patient agitated during that time, and it has continued.) Timing - duration: Weeks (about 2 weeks, only improved some after done abx/steroids 5 days ago. Continued agitation, and with poor sleep/insomnia the past 5 days. Awoke from sleep very agitated and somewhat nonsensical, but fully alert this morning.Improved enroute but still seems and feels somewhat anxious here.) Timing - details: Gradual onset (generally gradual with anxiety and poor sleep, with worse at times, and has had several very anxious episodes, the most notable this morning.) Quality / character: Confused, Agitated. No: Disoriented, Hallucinating Associated symptoms: Cough (2 weeks ago, improved after meds.). No: Fever, Headache, Dyspnea, NVD, Focal weakness Contributing factors: Recent illness (pneumonia and UTI 2 weeks ago, Tx with Levaquin and steroids for a week. Done those meds 5 days ago.). No: Substance abuse, Known psych illness (but daughter says strong history of anxiety and OCD.) Basline status: Alert and oriented X 3, Ambulatory Similar symptoms before: Has not had sx before Recently seen: Clinic, Emergency Dept Review of Systems Constitutional: denies: Fever, Chills Nose: denies: Rhinorrhea / runny nose, Congestion Throat: denies: Sore throat Respiratory: denies: Cough GI: denies: Vomiting, Diarrhea Skin: denies: Rash, Lesions Neurologic: denies: Focal weakness, Numbness, Near syncope, Headache, Head injury Psychiatric: reports: Anxiety, Insomnia PD PAST MEDICAL HISTORY - Past Medical History Past Medical History: Yes Cardiovascular: Hypertension Respiratory: Pneumonia Endocrine/Autoimmune: HyPOthyroidism : Other Psych: None Musculoskeletal: Osteoarthritis Derm: Psoriasis Other Past Medical History: prolapsed bladder - Past Surgical History Past Surgical History: Yes General: Appendectomy Ortho: Rotator cuff repair /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 HEENT: Cataracts, Tonsil/Adenoidectomy - Present Medications Home Medications: Ambulatory Orders Medication Instructions Recorded Confirmed Albuterol Sulf [Ventolin Hfa 1 - 2 puffs INH Q4HR PRN #1 inhaler 07/29/20 08/07/20 Inhaler] Losartan Potassium [Cozaar] 80 mg PO DAILY 07/29/20 08/07/20 Lovastatin [Altoprev] 1 tab PO DAILY 07/29/20 08/07/20 Thyroid [[place] Thyroid] 1 tab PO DAILY 07/29/20 08/07/20 amLODIPine [Norvasc] 2.5 mg PO DAILY 07/29/20 08/07/20 haloperidoL [Haldol] 1 mg PO BID #40 tablet 08/07/20 - Allergies Allergies/Adverse Reactions: Allergies Allergy/AdvReac Type Severity Reaction Status Date / Time sulfamethoxazole Allergy unknown Verified 08/07/20 05:47 [From ] trimethoprim [From ] Allergy unknown Verified 08/07/20 05:47 - Social History Does the pt smoke?: No Smoking Status: Never smoker Does the pt drink ETOH?: Yes Does the pt have substance abuse?: No - Immunizations Immunizations are current?: Yes - POLST Patient has POLST: No PD ED PE NORMAL - Vitals Vital signs reviewed: Yes - General General: Alert and oriented X 3, No acute distress (she says she feels anxious), Well developed/nourished - HEENT HEENT: Atraumatic - Cardiac Cardiac: RRR, No murmur - Respiratory Respiratory: Clear bilaterally - Abdomen Abdomen: Soft, Non tender - Back Back: No CVA TTP - Derm Derm: Normal color, Warm and dry - Extremities Extremities: Normal ROM s pain - Neuro Neuro: Alert and oriented X 3, No motor deficit, No sensory deficit, Normal speech Results - Vitals Vitals: Vital Signs - 24 hr 08/07/20 08/07/20 08/07/20 05:47 05:56 06:27 Temperature 36.5 C 36.5 C 36.6 C Heart Rate 86 86 79 Respiratory 26 H 18 18 Rate Blood Pressure 188/75 H 188/75 H 149/64 H O2 Saturation 100 100 99 08/07/20 08/07/20 08/07/20 08:00 08:52 09:00 Temperature 36.6 C Heart Rate 69 76 72 Respiratory 16 14 16 Rate Blood Pressure 141/62 H 113/56 L 115/60 O2 Saturation 99 97 97 Oxygen O2 Source Room air - Labs Labs: Laboratory Tests 08/07/20 08/07/20 08/07/20 06:10 06:10 06:10 WBC 13.9 H RBC 4.14 L Hgb 11.7 L Hct 35.8 L MCV 86.5 MCH 28.3 MCHC 32.7 RDW 13.9 Plt Count 402 MPV 8.9 Neut # (Auto) 10.3 H Lymph # (Auto) 2.2 [place] # (Auto) 1.0 Eos # (Auto) 0.3 Baso # (Auto) 0.0 Absolute Nucleated RBC 0.00 Nucleated RBC % 0.0 PT 12.2 INR 1.1 APTT 29.7 Sodium 129 L Potassium 4.1 Chloride 92 L Carbon Dioxide 26 Anion Gap 11.0 BUN 18 Creatinine 0.7 Estimated GFR (MDRD) 79 L Glucose 115 H Lactic Acid Calcium 8.9 Total Bilirubin 0.6 AST 20 ALT 24 Alkaline Phosphatase 58 Total Protein 7.1 Albumin 3.5 Globulin 3.6 Albumin/Globulin Ratio 1.0 Lipase 51 Urine Color Urine Clarity Urine pH Ur Specific [place] Urine Protein Urine Glucose (UA) Urine Ketones Urine Occult Blood Urine Nitrite Urine Bilirubin Urine Urobilinogen Ur Leukocyte Esterase Urine RBC Urine WBC Ur Squamous Epith Cells Urine Bacteria Ur Microscopic Review Urine Culture Comments 08/07/20 08/07/20 06:10 06:10 WBC RBC Hgb Hct MCV MCH MCHC RDW Plt Count MPV Neut # (Auto) Lymph # (Auto) [place] # (Auto) Eos # (Auto) Baso # (Auto) Absolute Nucleated RBC Nucleated RBC % PT INR APTT Sodium Potassium Chloride Carbon Dioxide Anion Gap BUN Creatinine Estimated GFR (MDRD) Glucose Lactic Acid 1.4 Calcium Total Bilirubin AST ALT Alkaline Phosphatase Total Protein Albumin Globulin Albumin/Globulin Ratio Lipase Urine Color YELLOW Urine Clarity CLEAR Urine pH 8.0 H Ur Specific [place] 1.015 Urine Protein NEGATIVE Urine Glucose (UA) NEGATIVE Urine Ketones NEGATIVE Urine Occult Blood SMALL H Urine Nitrite NEGATIVE Urine Bilirubin NEGATIVE Urine Urobilinogen 0.2 (NORMAL) Ur Leukocyte Esterase NEGATIVE Urine RBC 6-10 H Urine WBC 0-3 Ur Squamous Epith Cells NONE SEEN Urine Bacteria None Seen Ur Microscopic Review INDICATED Urine Culture Comments NOT INDICATED - Rads (name of study) head CT Radiology: Prelim report reviewed (no acute), See rad report PD MEDICAL DECISION MAKING - ED course Complexity details: reviewed results, considered differential, d/w patient, d/w family (I think her symptoms are likely initially from meds (quinolone and steroids) and may still have some effect from that even though finished 5 days ago. Now having symptoms of insomnia for 5 days. Pt's sister takes Haldol for anxiety, so pt/daughter are familiar and state works well.) Departure - Departure Disposition: 01 Home, Self Care Clinical Impression: Agitation, Hyponatremia Insomnia Qualifiers: Insomnia type: unspecified Qualified Code(s): G47.00 - Insomnia, unspecified Condition: Stable Record reviewed to determine appropriate education?: Yes Instructions: ED Insomnia Prescriptions: haloperidoL [Haldol] 1 mg PO BID #40 tablet Comments: Stay well-hydrated. Regular diet and activity. Hopefully some of your symptoms were related to the steroid and antibiotics and then now more related to the insomnia. If there is a trailing effect from the medication, it should just continue to get better. The insomnia may certainly be giving you much of your symptoms now. And then just general anxiety added in. We can try treating this with haloperidol 1 mg twice daily to begin with. If you find you need extra help at night for sleep, you can take 2 mg at night instead or also add in a Tylenol PM (diphenhydramine). These are okay to take together and would just have an additive sleep effect which is what you would be taking them intending. If you find that you are a bit foggy or sleepy during the day, then reduce/eliminate the morning dose of the haloperidol. Follow up with your new primary care on as planned. Transmitted the prescription to [facility] in [place]. Discharge Date/Time: 08/07/20 09:32
[2020-08-07] MEDS ORDERED: LORazepam 2 MG/ML VIAL IVP STA (07:52)
[2020-08-07] MEDS ORDERED: haloperidoL 1 MG TABLET PO STA (07:53)
--- NOTE | 2020-08-07 08:02 | CT Report ---
PROCEDURE: HEAD WO INDICATIONS: AMS TECHNIQUE: Noncontrast 4.5 mm thick angled axial sections acquired from the foramen magnum to the vertex. For r adiation dose reduction, the following was used: automated exposure control, adjustment of mA and/or kV according to patient size. COMPARISON: CT head 09/07/2017. FINDINGS: Image quality: Excellent. The ventricular system and cortical sulci demonstrate atrophy, consistent for patient's stated age. There are areas of hypodensity in the periventricular and subcortical white matter. There is no acut e intra or extra-axial fluid collection. No acute hemorrhage, mass lesion or midline shift. Brainst em is unremarkable. Globes are symmetrical. Sinuses are aerated. Osseous structures are intact. IMPRESSION: 1. No acute intracranial process. 2. Moderate atrophy and chronic microvascular ischemic changes. The above findings are concordant with preliminary report. Reviewed by: Lily Cowart MD on 08/07/2020 8:01 AM [facility] Approved by: Lily Cowrat MD on 08/07/2020 8:01 AM [facility] Station ID: [id number]
[2020-08-07 09:11] VITALS: BP 115/60
== END 2020-08-07 09:32 | disposition home or self-care (01) ==
LOC: ED 05:38
DX: R45.1 Restlessness and agitation (principal); E87.1 Hypo-osmolality and hyponatremia; G47.00 Insomnia, unspecified; F41.9 Anxiety disorder, unspecified; I10 Essential (primary) hypertension
CPT/HCPCS: 36415; 70450; 80053; 81001; 83605; 83690; 85025; 85610; 85730; 96374; 99284; A9270; J2060; 81003; 87086

== ENCOUNTER 2020-08-09 07:00 | Outpatient (CLI) | payer MEDICARE, OTHER ==
[2020-08-09 20:48] LABS: BACTERIAL VAGINOSIS DNA NEGATIVE (NEGATIVE); CANDIDA GLABRATA DNA NEGATIVE (NEGATIVE); CANDIDA GROUP DNA NEGATIVE (NEGATIVE); CANDIDA KRUSEI DNA NEGATIVE (NEGATIVE); TRICHOMONAS VAGINALIS DNA NEGATIVE (NEGATIVE)
== END 2020-08-09 23:59 | disposition home or self-care (01) ==
LOC: LAB.R 07:00
PROVIDERS: ATTEND Obstetrics & Gynecology
DX: L29.8 Other pruritus (principal)
CPT/HCPCS: 87661; 87801